=== PATIENT | female | born 1955 | race African-American/Black ===

== ENCOUNTER 2017-08-06 05:46 | Emergency (ER) | payer MEDICARE, MEDICAID ==
[~2017-08-06] VITALS: Ht 170.2 cm; Wt 98.0 kg
[~2017-08-06 05:46] MED LIST: ACET-3161; HYDR2TAB4; SOMA
[2017-08-06] MEDS ORDERED: ACETAMINOPHEN WITH CODEINE 300/30MG TABLET PO ONE (08:00)
[2017-08-06 08:40] VITALS: BP 140/86
== END 2017-08-06 08:40 | disposition home or self-care (01) ==
LOC: ER 05:46
DX: S16.1XXA Strain of muscle, fascia and tendon at neck level, initial encounter (principal); M71.21 Synovial cyst of popliteal space [Baker], right knee; M25.552 Pain in left hip; I10 Essential (primary) hypertension; W18.30XA Fall on same level, unspecified, initial encounter; Y93.89 Activity, other specified; Y92.89 Other specified places as the place of occurrence of the external cause; Y99.8 Other external cause status
CPT/HCPCS: 72125; 73502; 73562; 93971; 99284

== ENCOUNTER 2021-04-18 10:16 | Emergency (ER) | payer MEDICARE, MEDICAID ==
[~2021-04-18] VITALS: Ht 170.2 cm; Wt 91.0 kg
[2021-04-18 10:41] VITALS: BP 127/88
[2021-04-18] MEDS ORDERED: ACETAMINOPHEN 325MG TABLET PO ONE (12:00)
[2021-04-18] MEDS ORDERED: IPRATROPIUM BROMIDE (0.02%) 0.5MG/2.5ML NEB HHN STA (12:27)
[2021-04-18] MEDS ORDERED: ALBUTEROL (0.083%) 2.5MG/3ML NEB HHN SCH (12:30)
== END 2021-04-18 12:50 | disposition left against medical advice (07) ==
LOC: ER 10:16
DX: M25.561 Pain in right knee (principal); I10 Essential (primary) hypertension; Z98.890 Other specified postprocedural states
CPT/HCPCS: 73562; 99283